=== PATIENT | female | born 1950 | race Caucasian/White ===

== ENCOUNTER → 2023-09-22 11:24 | Outpatient (REF) | payer MEDICARE, SELFPAY | LOC: HWWDC 11:24 | PROVIDERS: ATTENDING PHYSICIAN Family Medicine | DX: Z12.31 Encounter for screening mammogram for malignant neoplasm of breast (principal) | CPT/HCPCS: 77063; 77067 ==

== ENCOUNTER → 2024-10-06 10:52 | Outpatient (REF) | payer MEDICARE, SELFPAY | LOC: HWWDC 10:52 | PROVIDERS: ATTENDING PHYSICIAN Family Medicine | DX: Z12.31 Encounter for screening mammogram for malignant neoplasm of breast (principal) | CPT/HCPCS: 77063; 77067 ==

== ENCOUNTER → 2024-10-13 12:51 | Outpatient (REF) | payer MEDICARE, SELFPAY | LOC: HWRAD 12:51 | PROVIDERS: ATTENDING PHYSICIAN Family Medicine | DX: R05.1 Acute cough (principal) | CPT/HCPCS: 71046 ==